=== PATIENT | male | born 1955 | race Two or more races ===

== ENCOUNTER 2017-05-26 21:46 | Inpatient (IN) | payer BC, OTHER ==
[~2017-05-26] VITALS: Ht 172.7 cm; Wt 111.8 kg
[2017-05-26] MEDS ORDERED: SODIUM CHLORIDE 0.9% 1,000 ML IVB ONE (22:12)
[2017-05-26] MEDS ORDERED: ONDANSETRON HCL 4 MG/2 ML VIAL ONE (22:37)
[2017-05-26 22:38] LABS: Basophils # (auto) 0.1 uL; Basophils % (auto) 0.3 % (0.0-2.0); Eosinophils # (auto) 0 uL; Eosinophils % (auto) 0.1 % (0.0-7.0); Hematocrit 46.8 % (41.0-53.0); Lymphocytes # (auto) 1.3 uL; Lymphocytes % (auto) 7.2 % (10.0-50.0); Mean Corpuscular Hemoglobin 30.1 pg (28.0-32.0); Mean Corpuscular Hgb Conc. 34.3 g/dL (32.0-36.0); Mean Corpuscular Volume 87.8 fL (80.0-100.0); Mean Platelet Volume 7.5 fL (6.9-10.8); Monocytes # (auto) 1.7 uL; Monocytes % (auto) 9.5 % (0.0-12.0); Neutrophils # (auto) 14.5 uL; Neutrophils % (auto) 82.9 % (37.0-80.0); Platelet Count (auto) 242 10^3/uL (140-450); White Blood Cell 17.5 10^3/uL (4.4-10.8)
[2017-05-26] MEDS ORDERED: ONDANSETRON HCL 4 MG/2 ML VIAL IV ONE (22:45)
[2017-05-26 22:46] LABS: Urine Bilirubin Negative (Negative); Urine Blood TRACE /uL (Negative); Urine Color Yellow (Yellow); Urine Glucose Normal (Normal); Urine Ketone Negative (Negative); Urine Nitrite Negative (Negative); Urine RBC 1 /hpf (0 - 3); Urine Urobilinogen Normal (Negative)
[2017-05-26 22:54] LABS: Albumin 3.9 g/dL (3.4-5.0); BUN/Creatinine Ratio 8.2; Calcium 9.3 mg/dL (8.5-10.1); Potassium 3.6 mmol/L (3.5-5.1)
[2017-05-26 22:56] LABS: Bilirubin, Total 0.8 mg/dL (0.2-1.0); Total Protein 8.6 g/dL (6.4-8.2)
[2017-05-26] MEDS ORDERED: NALBUPHINE HCL 10 MG/1ml INJECTION IV ONE (23:45)
[2017-05-27] MEDS ORDERED: metroNIDAZOLE 500MG/100ML 100 ML IV ONE (04:00)
[2017-05-27] MEDS ORDERED: cefTRIAXone 1GM/50ML D5W 50 ML IV ONE (04:00)
[2017-05-27] MEDS ORDERED: HYDROmorphone HCL 2 MG/ML VL IV ONE (04:00)
[2017-05-27] MEDS ORDERED: ACETAMINOPHEN 325 MG TAB PO PRN (06:45)
[2017-05-27] MEDS ORDERED: METOPROLOL TARTRATE 1MG/1ML-5ML VIAL IV ONE (06:45)
[2017-05-27] MEDS ORDERED: TEMAZEPAM 15 MG CAP PO PRN (06:45)
[2017-05-27] MEDS ORDERED: NITROGLYCERIN 0.4 MG SL TAB SL PRN (06:45)
[2017-05-27] MEDS ORDERED: SODIUM CHLORIDE 0.9% 500 ML IV ONE (06:45)
[2017-05-27] MEDS ORDERED: ONDANSETRON HCL 4 MG/2 ML VIAL IV PRN (06:45)
[2017-05-27] MEDS ORDERED: MORPHINE SULF INJ 2 MG/ML SYRINGE 1ML IV PRN ×2 (06:45)
[2017-05-27] MEDS ORDERED: cloNIDine HCL 0.1 MG TAB PO PRN (06:45)
[2017-05-27 07:13] LABS: Calcium 8.2 mg/dL (8.5-10.1); Potassium 4.1 mmol/L (3.5-5.1)
[2017-05-27 07:16] LABS: BUN/Creatinine Ratio 9.6
[2017-05-27] MEDS ORDERED: SODIUM CHLORIDE 0.9% 1,000 ML IV SCH (07:45)
[2017-05-27] MEDS ORDERED: HYDROcodone-ACET 5/325MG TAB PO ONE (08:00)
[2017-05-27] MEDS ORDERED: METOPROLOL TARTRATE 25 MG TAB PO SCH (10:00)
[2017-05-27] MEDS ORDERED: ENOXAPARIN SOD 40 MG/0.4 ML SYRINGE SC SCH (10:00)
[2017-05-27] MEDS: PANTOPRAZOLE 40 MG/10 ML VIAL IV SCH (11:18)
[2017-05-27] MEDS ORDERED: OMEP20CA74 PO (12:21)
[2017-05-27 13:00] VITALS: BP 157/102
[2017-05-27] MEDS ORDERED: LIDOCAINE 1% HCL (LOCAL ANESTH.) INJ 20ML MDV ONE (14:00)
[2017-05-27] MEDS ORDERED: SUCCINYLCHOLINE CHLORIDE 20 MG/ML 10ML VIAL IV ONE (14:00)
[2017-05-27] MEDS ORDERED: ETOMIDATE (2MG/ML) 20ML VIAL IV ONE (14:03)
[2017-05-27] MEDS ORDERED: MEPERIDINE HCL (50 MG/ML) 1 ML VIAL ONE (14:03)
[2017-05-27] MEDS ORDERED: MIDAZOLAM HCL 1MG/1ML-2 ML VIAL ONE (14:03)
[2017-05-27] MEDS ORDERED: fentaNYL CITRATE 100 MCG/2 ML VL ONE (14:03)
[2017-05-27] MEDS ORDERED: SODIUM CHLORIDE LOCK 20 ML ONE (14:03)
[2017-05-27] MEDS ORDERED: ROCURONIUM 10MG/ML 10ML VIAL IV ONE (14:03)
[2017-05-27] MEDS: metroNIDAZOLE 500MG/100ML 100 ML IV SCH ×2 (14:16→21:45)
[2017-05-27] MEDS: HYDROmorphone HCL 2 MG/ML VL IV PRN (14:16)
[2017-05-27] MEDS ORDERED: ceFAZolin 1GM/50ML D5W 50 ML IV ONE (14:43)
[2017-05-27 14:53] LABS: INR 1.05 (0.9-1.15); Partial Thromboplastin Time 28.7 sec (22.64-33.71); Prothrombin Time 11.5 sec (9.37-12.3)
[2017-05-27] MEDS ORDERED: GLYCOPYRROLATE 0.2 MG/ML 1ML VIAL IV ONE (15:14)
[2017-05-27] MEDS ORDERED: NEOSTIGMINE 1 MG/ML INJ (10mg/10ML VIAL) IV ONE (15:14)
[2017-05-27] MEDS ORDERED: PROPOFOL 10 MG/ML 20 ML IV ONE (15:16)
[2017-05-27] MEDS ORDERED: fentaNYL CITRATE 5 ML ONE (15:16)
[2017-05-27] MEDS ORDERED: ONDANSETRON HCL 4 MG/2 ML VIAL IV ONE (16:30)
[2017-05-27] MEDS ORDERED: HYDROmorphone HCL 2 MG/ML VL IV PRN (16:30)
[2017-05-27] MEDS ORDERED: ePHEDrine SULFATE 50 MG/ML AMP IV PRN (16:30)
[2017-05-27] MEDS ORDERED: hydrALAZINE HCL 20 MG/ML VL IV PRN (16:30)
[2017-05-27 22:00] VITALS: BP 109/70
[2017-05-28] VITALS (7 sets, daily range): BP systolic 99–146; BP diastolic 67–112
[2017-05-28] MEDS: HYDROcodone-ACET 5/325MG TAB PO PRN ×3 (05:24→22:11)
[2017-05-28] MEDS: cefTRIAXone 1GM/50ML D5W 50 ML IV SCH (05:25)
[2017-05-28 05:41] LABS: Basophils # (auto) 0 uL; Basophils % (auto) 0.4 % (0.0-2.0); CONDITION Y; Eosinophils # (auto) 0.1 uL; Eosinophils % (auto) 0.9 % (0.0-7.0); Hematocrit 39.5 % (41.0-53.0); Hemoglobin 13.2 g/dL (13.5-17.5); Lymphocytes # (auto) 1.5 uL; Lymphocytes % (auto) 13.6 % (10.0-50.0); Mean Corpuscular Hemoglobin 29.9 pg (28.0-32.0); Mean Corpuscular Hgb Conc. 33.4 g/dL (32.0-36.0); Mean Corpuscular Volume 89.6 fL (80.0-100.0); Mean Platelet Volume 8.3 fL (6.9-10.8); Monocytes # (auto) 0.9 uL; Monocytes % (auto) 8.5 % (0.0-12.0); Neutrophils # (auto) 8.2 uL; Neutrophils % (auto) 76.6 % (37.0-80.0); Platelet Count (auto) 211 10^3/uL (140-450); Red Cell Distribution Width 13.9 % (11.8-14.3); White Blood Cell 10.7 10^3/uL (4.4-10.8)
[2017-05-28 06:01] LABS: Calcium 7.9 mg/dL (8.5-10.1); Potassium 3.7 mmol/L (3.5-5.1)
[2017-05-28 06:02] LABS: INR 1.09 (0.9-1.15); Partial Thromboplastin Time 29.4 sec (22.64-33.71); Prothrombin Time 11.9 sec (9.37-12.3)
[2017-05-28 06:04] LABS: Albumin 2.8 g/dL (3.4-5.0); BUN/Creatinine Ratio 10.9
[2017-05-28 06:07] LABS: Bilirubin, Total 0.9 mg/dL (0.2-1.0)
[2017-05-28] MEDS: metroNIDAZOLE 500MG/100ML 100 ML IV SCH ×3 (06:58→21:54)
[2017-05-28] MEDS: PANTOPRAZOLE 40 MG/10 ML VIAL IV SCH (10:05)
[2017-05-28] MEDS: SODIUM CHLORIDE 0.9% 1,000 ML IV SCH ×2 (10:07→17:45)
[2017-05-28] MEDS: HYDROmorphone HCL 2 MG/ML VL IV PRN (14:34)
[2017-05-29] MEDS: SODIUM CHLORIDE 0.9% 1,000 ML IV SCH ×2 (03:47→13:45)
[2017-05-29] MEDS: cefTRIAXone 1GM/50ML D5W 50 ML IV SCH (04:36)
[2017-05-29 05:31] VITALS: BP 129/91
[2017-05-29] MEDS: metroNIDAZOLE 500MG/100ML 100 ML IV SCH ×3 (05:45→21:53)
[2017-05-29 07:35] VITALS: BP 136/94
[2017-05-29] MEDS: PANTOPRAZOLE 40 MG/10 ML VIAL IV SCH (10:27)
[2017-05-29] MEDS: HYDROcodone-ACET 5/325MG TAB PO PRN (10:51)
[2017-05-29 11:30] VITALS: BP 148/102
[2017-05-29 15:24] VITALS: BP 146/93
[2017-05-29 22:26] VITALS: BP 147/103
[2017-05-30 00:54] VITALS: BP 145/99
[2017-05-30] MEDS: SODIUM CHLORIDE 0.9% 1,000 ML IV SCH ×2 (02:23→10:20)
[2017-05-30] MEDS: cefTRIAXone 1GM/50ML D5W 50 ML IV SCH (04:37)
[2017-05-30] MEDS: metroNIDAZOLE 500MG/100ML 100 ML IV SCH ×2 (05:32→14:00)
[2017-05-30 05:45] LABS: Calcium 8.6 mg/dL (8.5-10.1); Potassium 3.4 mmol/L (3.5-5.1)
[2017-05-30 05:47] LABS: BUN/Creatinine Ratio 9.9
[2017-05-30 05:50] LABS: Bilirubin, Total 0.5 mg/dL (0.2-1.0); Total Protein 7.2 g/dL (6.4-8.2)
[2017-05-30 06:24] VITALS: BP 132/86
[2017-05-30 08:00] VITALS: BP 132/86
[2017-05-30 08:58] VITALS: BP 145/99
[2017-05-30] MEDS: PANTOPRAZOLE 40 MG/10 ML VIAL IV SCH (10:20)
[2017-05-30] MEDS ORDERED: POTASSIUM CHL 20 Meq TABLET PO ONE (11:45)
[2017-05-30 13:00] VITALS: BP 143/88
[2017-05-30 14:28] VITALS: BP 139/98
== END 2017-05-30 15:30 | disposition home or self-care (01) | DRG 853 ==
LOC: ER 21:56 → TELE 21:57 → TELE-E-ADS 05-27 08:22 → TELE-WESTW 05-27 10:30 → WEST WING 05-29 01:30
PROVIDERS: ADMIT Nurse Practitioner; ATTEND Internal Medicine
PROC: 0FT44ZZ Resection of Gallbladder, Percutaneous Endoscopic Approach (ICD-10-PCS; principal; 2017-05-27 15:14)
DX: A41.9 Sepsis, unspecified organism (principal); N17.0 Acute kidney failure with tubular necrosis; K85.90 Acute pancreatitis without necrosis or infection, unspecified; K80.00 Calculus of gallbladder with acute cholecystitis without obstruction; I10 Essential (primary) hypertension; Z85.46 Personal history of malignant neoplasm of prostate; N20.0 Calculus of kidney; E66.01 Morbid (severe) obesity due to excess calories; K44.9 Diaphragmatic hernia without obstruction or gangrene; K82.8 Other specified diseases of gallbladder; Z90.79 Acquired absence of other genital organ(s); Z68.37 Body mass index [BMI] 37.0-37.9, adult
CPT/HCPCS: 36415; 71010; 74176; 80048; 80053; 81001; 83690; 84484; 85025; 85610; 85730; 86850; 86900; 86901; 87040; 93005; 96361; 96365; 96366; 96368; 96375; C9113; J0330; J0690; J0696; J2001; J2250; J2405; J2704; J3490

== ENCOUNTER → 2023-04-28 | Outpatient (CLI) | payer MEDICARE ==
[~2023-04-28] MED LIST: OMEP20CA74 PO
[2023-04-28 08:51] LABS: Basophils # (auto) 0.1 10 ^3/uL (0-0.2); Basophils % (auto) 0.8 % (0.0-2.0); Eosinophils # (auto) 0.4 10 ^3/uL (0-0.8); Eosinophils % (auto) 5.2 % (0.0-7.0); Hematocrit 43.6 % (41.0-53.0); Hemoglobin 14.8 g/dL (13.5-17.5); Lymphocytes # (auto) 2.2 10 ^3/uL (0.4-5.4); Lymphocytes % (auto) 30.1 % (10.0-50.0); Mean Corpuscular Hemoglobin 29.6 pg (28.0-32.0); Mean Corpuscular Volume 87.1 fL (80.0-100.0); Monocytes # (auto) 0.6 10 ^3/uL (0-1.3); Neutrophils # (auto) 4.1 10 ^3/uL (1.6-8.6); Neutrophils % (auto) 55.9 % (37.0-80.0); Nucleated Red Blood Cells % 0.1 %; Red Blood Cells 5.01 10^6/uL (4.5-5.90); Red Cell Distribution Width 14.2 % (11.8-14.3); White Blood Cell 7.4 10^3/uL (4.4-10.8)
[2023-04-28 09:37] LABS: Albumin 3.8 g/dL (3.4-5.0); Calcium 9.3 mg/dL (8.5-10.1); Potassium 3.8 mmol/L (3.5-5.1)
[2023-04-28 09:43] LABS: BUN/Creatinine Ratio 7.6 (10.0-20.0); Bilirubin, Total 0.6 mg/dL (0.2-1.0); Total Protein 8.5 g/dL (6.4-8.2)
== END | disposition home or self-care (01) ==
LOC: LAB 08:39
PROVIDERS: ATTEND Internal Medicine Rheumatology
DX: E11.65 Type 2 diabetes mellitus with hyperglycemia (principal); I10 Essential (primary) hypertension
CPT/HCPCS: 36415; 80053; 80061; 83036; 85025

== ENCOUNTER 2025-07-17 09:02 | Inpatient (IN) | payer MEDICARE ==
[~2025-07-17] VITALS: Ht 172.7 cm; Wt 100.3 kg
--- NOTE | 2025-07-17 09:46 | ED.PDOC ---
Altered Mental Status HPI Comments This is a 69 year old male presenting to the ED with chief complaint of memory loss. Patient's reports that the patient has become increasingly forgetful and confused for the past few days. relays that the patient was unable to remember getting home last night for [address] he needed to take was 45 minutes. states that the patient was advised by Dr. Liu to come into the ED for further evaluation due to possible new onset dementia. Patient denies any further symptoms or concerns at this time. Chief Complaint: Confusion Time Seen by MD: 09:44 Primary Care Provider: UNKNOWN Reviewed Notes: Nurses Notes, Medications, Allergies Allergies: Coded Allergies: NO KNOWN ALLERGIES (Unverified , 05/26/17) YES Home Meds Reported Medications Omeprazole (PRILOSEC) 20 Mg Cap, 20 MG PO DAILY, CAP 05/27/17 Information Source: Patient, Spouse Mode of Arrival: Ambulatory Severity: Mild Timing: Days Duration: Since onset Prehospital treatment: None Quality: Confusion, Memory Loss Recent: None Past Medical History PAST MEDICAL HISTORY: Cancer, HTN Surgical History: Denies all surgeries Family History Family History (Other): Dementia Social History Smoker: Non-Smoker Alcohol: Denies ETOH Use Drugs: Denies Drug Use Lives In: Home Constitutional: denies: chills, diaphoresis, fatigue, fever, malaise, sweats, weakness, others EENTM: denies: blurred vision, double vision, ear bleeding, ear discharge, ear drainage, ear pain, ear ringing, eye pain, eye redness, hearing loss, mouth pain, mouth swelling, nasal discharge, nose bleeding, nose congestion, nose pain, photophobia, tearing, throat pain, throat swelling, voice changes, others Respiratory: denies: cough, hemoptysis, orthopnea, SOB at rest, shortness of breath, SOB with excertion, stridor, wheezing, others Cardiovascular: denies: chest pain, dizzy spells, diaphoresis, Dyspnea on exertion, edema, irregular heart beat, left arm pain, lightheadedness, palpitations, PND, syncope, others Gastrointestinal: denies: abdomen distended, abdominal pain, blood streaked bowels, constipated, diarrhea, dysphagia, difficulty swallowing, hematemesis, me mike, nausea, poor appetite, poor fluid intake, rectal bleeding, rectal pain, vomiting, others Genitourinary: denies: burning, dysuria, flank pain, frequency, hematuria, incontinence, penile discharge, penile sore, pain, testicle pain, testicle swelling, urgency, others Neurological: reports: others (Confusion); denies: dizziness, fainting, headache, left sided numbness, left sided weakness, numbness, paresthesia, pre- existing deficit, right sided numbness, right sided weakness, seizure, speech problems, tingling, tremors, weakness Musculoskeletal: denies: back pain, gout, joint pain, joint swelling, muscle pain, muscle stiffness, neck pain, others Integumetry: denies: bruises, change in color, change in hair/nails, dryness, laceration, lesions, lumps, rash, wounds, others Allergic/Immunocompromised: denies: Difficulty Healing, Frequent Infections, Hives, Itching, others Hematologic/Lymphatic: denies: anemia, blood clots, easy bleeding, easy bruising, swollen glands, others Endocrine: denies: excessive hunger, excessive sweating, excessive thirst, excessive urination, flushing, intolerance to cold, intolerance to heat, unexplained weight gain, unexplained weight loss, others Psychiatric: denies: anxiety, bipolar disorder, depression, hopeless, panic disorder, schizophrenia, sleepless, suicidal, others All Other Systems: Reviewed and Negative Physical Exam General Appearance: No Apparent Distress, Normal HEENT: Normal ENT Inspection, Pharynx Normal, TMs Normal Neck: Full Range of Motion, Non-Tender, Normal, Normal Inspection Respiratory: Chest Non-Tender, Lungs Clear, No Accessory Muscle Use, No Respiratory Distress, Normal Breath Sounds Cardiovascular: No Edema, No JVD, No Murmur, No Gallop, Normal Peripheral Pulses, Regular Rate/Rhythm Breast Exam: Deferred Gastrointestinal: No Organomegaly, Non Tender, No Pulsatile Mass, Normal Bowel Sounds, Soft Genitalia: Deferred Pelvic: Deferred Rectal: Deferred Extremities: No calf tenderness, Normal capillary refill, Normal inspection, Normal range of motion, Non-tender, No pedal edema Musculoskeletal : Apperance: Normal Neurologic: Alert, 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 Was a procedure done?: No Differential Diagnosis (ALOC) Differential Diagnosis: Hypoglycemia, DKA, Encephalopathy, Hypoxemia, Seizure, Mass Lesion, SAH X-Ray, Labs, Meds, VS Vital Signs Date Time Temp Pulse Resp B/P (MAP) Pulse Ox O2 Delivery O2 Flow Rate FiO2 07/17/25 09:04 98.4 103 19 140/84 95 98.4 Lab Test 07/17/25 10:35 07/17/25 10:00 07/17/25 09:50 Range/Units Troponin I High Sensitivity Pending 12 </=54 ng/L Urine Color Light-yellow Yellow Urine Clarity Clear Clear Urine pH 5.5 5.0-9.0 Urine Specific [place] 1.019 1.001-1.035 Urine Protein Trace H Negative Urine Ketones Negative Negative Urine Blood Negative Negative /uL Urine Nitrite Negative Negative Urine Bilirubin Negative Negative Urine Urobilinogen Normal Negative mg/dL Urine Leukocyte Esterase Negative Negative /uL Urine RBC None seen 0 - 3 /hpf Urine Microscopic WBC 1 0-3 /HPF Urine Squamous Epithelial Cells None seen <5 /hpf Urine Bacteria None seen None Seen /hpf Urine Glucose 4+ H Normal mg/dL White Blood Count 6.8 4.4-10.8 10^3/uL Red Blood Count 5.28 4.5-5.90 10^6/uL Hemoglobin 15.7 13.5-17.5 g/dL Hematocrit 47.0 41.0-53.0 % Mean Corpuscular Volume 89.0 80.0-100.0 fL Mean Corpuscular Hemoglobin 29.8 28.0-32.0 pg Mean Corpuscular Hemoglobin Concent 33.5 32.0-36.0 g/dL Red Cell Distribution Width 14.0 11.8-14.3 % Platelet Count 249 140-450 10^3/uL Mean Platelet Volume 7.7 6.9-10.8 fL Neutrophils (%) (Auto) 58.9 37.0-80.0 % Lymphocytes (%) (Auto) 31.5 10.0-50.0 % Monocytes (%) (Auto) 6.4 0.0-12.0 % Eosinophils (%) (Auto) 2.1 0.0-7.0 % Basophils (%) (Auto) 1.1 0.0-2.0 % Neutrophils # (Auto) 4.0 1.6-8.6 10 ^3/uL Lymphocytes # (Auto) 2.1 0.4-5.4 10 ^3/uL Monocytes # (Auto) 0.4 0-1.3 10 ^3/uL Eosinophils # (Auto) 0.1 0-0.8 10 ^3/uL Basophils # (Auto) 0.1 0-0.2 10 ^3/uL Nucleated Red Blood Cells 0.0 % Sodium Level 140 136-145 mmol/L Potassium Level 3.8 3.5-5.1 mmol/L Chloride Level 104 98-107 mmol/L Carbon Dioxide Level 26 20-31 mmol/L Anion Gap 10 5-15 Blood Urea Nitrogen 9 9-23 mg/dL Creatinine 1.65 H 0.700-1.30 mg/dL Glomerular Filtration Rate Calc 44 >90 mL/min BUN/Creatinine Ratio 5.5 L 10.0-20.0 Serum Glucose 358 H 74-106 mg/dL Calcium Level 9.5 8.7-10.4 mg/dL [place] [id number] Ph: [phone] DIAGNOSTIC IMAGING Diagnostic Imaging Report : [id number] Signed PATIENT: GENE PATEL ACCT: [id number] UNIT: [id number] : 1955 LOC: ER ROOM / BED: / AGE / SEX: 69 / M ADM STATUS: REG ER SERVICE 0940 ORDERING PHYSICIAN: NICHOLAS RODRIGUEZ MD PROCEDURE(s): HWOCT - HEAD WITHOUT CONTRAST REASON: [facility] ORDER NUMBER(s): [id number], ACCESSION NUMBER(s): [id number] INDICATION: ams TECHNIQUE: Multidetector row CT of the head was performed without administration of intravenous contrast. Dose lowering techniques have been used including automated exposure control and adjustment of mA and/or kv according to patient size. COMPARISON: None FINDINGS: There is no evidence of acute intracranial hemorrhage or infarct. There is no mass effect or shifting of midline structures. Generalized cerebral and cerebellar atrophy with prominence of sulci and ventricles. Periventricular white matter hypodensity likely reflect small vessel ischemic changes. No depressed calvarial fracture. DLP is 968.69 mGy-cm. CTDI vol is 53.63 mGy. IMPRESSION: 1. No acute intracranial abnormality. ATED BY: JP CHRISTINE MD DICTATED DATE/TIME: 07/17/25 1034 SIGNED BY: JP CHRISTINE MD SIGNED DATE/TIME: 07/17/25 1034 CC: [place] [id number] Ph: [phone] DIAGNOSTIC IMAGING Diagnostic Imaging Report : [id number] Signed PATIENT: GENE PATEL ACCT: [id number] UNIT: [id number] : 1955 LOC: ER ROOM / BED: / AGE / SEX: 69 / M ADM STATUS: REG ER SERVICE 9 ORDERING PHYSICIAN: NICHOLAS RODRIGUEZ MD PROCEDURE(s): CXRP - CHEST PORTABLE REASON: ams ORDER NUMBER(s): [id number], ACCESSION NUMBER(s): [id number] EXAM: XY CHEST PORTABLE Indication: ams Technique: Single frontal view of the chest was obtained Comparison: None FINDINGS: Lines and Tubes: None Lungs: No focal consolidation. Pleura: No effusion. No pneumothorax. Cardiomediastinal contours: Unremarkable Bones: No acute osseous abnormality. IMPRESSION: No acute cardiopulmonary disease. ATED BY: IVANA BELLO MD DICTATED DATE/TIME: 07/17/25 1016 SIGNED BY: IVANA BELLO MD SIGNED DATE/TIME: 07/17/25 1016 CC: Images Reviewed?: Images reviewed and evaluated by me Time of 1ST Reevaluation: 11:07 Reevaluation 1ST: Unchanged Patient Education/Counseling: Diagnosis, Treatment Family Education/Counseling: Diagnosis, Treatment SEPSIS Sepsis Screen Date sepsis recognized/suspect: Jul 17, 2025 Time Sepsis recognized/suspect: 0908 Recent Procedure: No On Antibiotic Therapy: No Respiratory Rate >20: No Heart Rate >90: No Temp<36 C (96.8 F) or >38.3 C: No SBP <90 or MAP <65 mmHG: No New Acute Mental Status Change: No Is the patient on CPAP, BIPAP,: No Physician Orders Chest Portable (07/17/25 09:40) Head Without Contrast (07/17/25 09:40) Electrocardigram (07/17/25 09:40) Troponin-I Hs (07/17/25 10:40) Troponin-I Hs (07/17/25 12:40) Electrocardigram (07/17/25 10:40) Electrocardigram (07/17/25 12:40) Vital Signs Date Time Temp Pulse Resp B/P (MAP) Pulse Ox O2 Delivery O2 Flow Rate FiO2 07/17/25 09:04 98.4 103 19 140/84 95 98.4 Laboratory Tests Test 07/17/25 09:50 White Blood Count 6.8 10^3/uL (4.4-10.8) Departure 1 Departure Time of Disposition: 11:07 (Patient likely with worsening metabolic encephalopathy versus new onset dementia. We will admit the patient for further workup) Impression: Primary Impression: Acute metabolic encephalopathy Additional Impressions: Altered mental status Generalized weakness Disposition: ADMITTED INPATIENT Admit to: Med Surg Condition: Guarded Critical Care Note Critical Care Time?: No Stability Stability form required: No Heart Score Heart Score: Heart Score Response (Comments) Value History N/A 0 EKG N/A 0 Age N/A 0 Risk Factors N/A 0 Troponin N/A 0 Total 0 I personally scribed for NICHOLAS RODRIGUEZ MD ([email or web address]) on 07/17/25 at 09:46. Electronically submitted by Asher Cobb ([email or web address]). I personally scribed for NICHOLAS RODRIGUEZ MD ([email or web address]) on 07/17/25 at 10:45. Electronically submitted by Asher Cobb ([email or web address]). NICHOLAS RODRIGUEZ MD Jul 17, 2025 09:46
[2025-07-17 10:11] LABS: Hematocrit 47.0 % (41.0-53.0); Hemoglobin 15.7 g/dL (13.5-17.5); Mean Corpuscular Hemoglobin 29.8 pg (28.0-32.0); Mean Corpuscular Volume 89.0 fL (80.0-100.0); Nucleated Red Blood Cells % 0.0 %
[2025-07-17 10:17] LABS: Chloride 104 mmol/L (98-107); Potassium 3.8 mmol/L (3.5-5.1); Sodium 140 mmol/L (136-145)
--- NOTE | 2025-07-17 10:18 | DVH ---
EXAM: XY CHEST PORTABLE Indication: ams Technique: Single frontal view of the chest was obtained Comparison: None FINDINGS: Lines and Tubes: None Lungs: No focal consolidation. Pleura: No effusion. No pneumothorax. Cardiomediastinal contours: Unremarkable Bones: No acute osseous abnormality. IMPRESSION: No acute cardiopulmonary disease.
[2025-07-17 10:19] LABS: Anion Gap 10 (5-15); Calcium 9.5 mg/dL (8.7-10.4); Carbon Dioxide 26 mmol/L (20-31)
[2025-07-17 10:23] LABS: Urine Protein, UAD TRACE (Negative)
[2025-07-17 10:24] LABS: BUN/Creatinine Ratio 5.5 (10.0-20.0)
[2025-07-17 10:26] LABS: Blood Urea Nitrogen 9 mg/dL (9-23); Glucose 358 mg/dL (74-106)
--- NOTE | 2025-07-17 10:36 | DVH ---
INDICATION: ams TECHNIQUE: Multidetector row CT of the head was performed without administration of intravenous contrast. Dose lowering techniques have been used including automated exposure control and adjustment of mA and/or kv according to patient size. COMPARISON: None FINDINGS: There is no evidence of acute intracranial hemorrhage or infarct. There is no mass effect or shifting of midline structures. Generalized cerebral and cerebellar atrophy with prominence of sulci and ventricles. Periventricular white matter hypodensity likely reflect small vessel ischemic changes. No depressed calvarial fracture. DLP is 968.69 mGy-cm. CTDI vol is 53.63 mGy. IMPRESSION: 1. No acute intracranial abnormality.
[2025-07-17] MEDS ORDERED: ONDANSETRON HCL 4 MG/2 ML VIAL IV PRN (19:30)
[2025-07-17 19:59] LABS: Chloride 103 mmol/L (98-107); Potassium 3.5 mmol/L (3.5-5.1); Sodium 138 mmol/L (136-145)
[2025-07-17 20:00] LABS: Anion Gap 8 (5-15); Calcium 9.8 mg/dL (8.7-10.4); Carbon Dioxide 27 mmol/L (20-31)
[2025-07-17 20:13] LABS: Glucose 325 mg/dL (74-106)
[2025-07-17 20:23] LABS: BUN/Creatinine Ratio 7.1 (10.0-20.0); Blood Urea Nitrogen 11 mg/dL (9-23)
--- NOTE | 2025-07-17 21:39 | DVHHP2 ---
History of Present Illness Reason for Visit: Memory loss History of Present Illness 69-year-old male presents for evaluation of memory loss. Patient is accompanied by his . She reports the patient becoming forgetful and confused over the past two days. He states that the day before yesterday it took them more than 2 hours to get home when a normally takes some 35 minutes. Also reports the patient becoming confused and possibly having hallucinations. Her primary care provider advised her to present to the emergency department for further evaluation. Past Medical History Hypertension, cancer Past Surgical History None Family History Noncontributory Smoke: No ALCOHOL: none Drugs: None Lives: with Family Review of Systems Review of Systems Review of systems are currently negative otherwise addressed in HPI. Allergies: Coded Allergies: NO KNOWN ALLERGIES (Unverified , 05/26/17) YES Medications Current Medications Medications Dose Ordered Sig/Jacqueline Route Start Time Stop Time Status Last Admin Dose Admin Ondansetron HCl 4 mg Q4HP PRN IV 07/17/25 19:30 Acetaminophen 650 mg Q6HP PRN PO 07/17/25 19:30 Exam Vital Signs Vital Signs Date Time Temp Pulse Resp B/P (MAP) Pulse Ox O2 Delivery O2 Flow Rate FiO2 07/17/25 19:10 96 16 124/84 (97) 95 07/17/25 09:04 98.4 98.4 Exam Gen: 69-year-old male in mild distress. Skin: Warm, dry, normal color and texture, no rash. HEENT: Normocephalic atraumatic, mucous membranes moist and pink. Neck: Cervical and supraclavicular nodes normal without enlargement, trachea is midline, thyroid gland is normal without masses. Pulmonary: Clear to auscultation and percussion bilaterally. Cardiac: Regular rate and rhythm. No murmur Abdomen: Soft, nontender, nondistended, bowel sounds present all 4 quadrants, no guarding, no rigidity, no organomegaly. Extremities: No cyanosis, clubbing, no edema Neuro: Cranial nerves II through XII grossly intact, normal affect and speech, no focal motor deficits. Labs/Xrays ORDERING PHYSICIAN: NICHOLAS RODRIGUEZ MD PROCEDURE(s): HWOCT - HEAD WITHOUT CONTRAST REASON: ams ORDER NUMBER(s): [id number], ACCESSION NUMBER(s): [id number] INDICATION: ams TECHNIQUE: Multidetector row CT of the head was performed without administration of intravenous contrast. Dose lowering techniques have been used including automated exposure control and adjustment of mA and/or kv according to patient size. COMPARISON: None FINDINGS: There is no evidence of acute intracranial hemorrhage or infarct. There is no mass effect or shifting of midline structures. Generalized cerebral and cerebellar atrophy with prominence of sulci and ventricles. Periventricular white matter hypodensity likely reflect small vessel ischemic changes. No depressed calvarial fracture. DLP is 968.69 mGy-cm. CTDI vol is 53.63 mGy. IMPRESSION: 1. No acute intracranial abnormality. Labs Test 07/17/25 19:31 07/17/25 13:20 07/17/25 10:00 07/17/25 09:50 Range/Units Sodium Level 138 136-145 mmol/L Potassium Level 3.5 3.5-5.1 mmol/L Chloride Level 103 98-107 mmol/L Carbon Dioxide Level 27 20-31 mmol/L Anion Gap 8 5-15 Blood Urea Nitrogen 11 9-23 mg/dL Creatinine 1.56 H 0.700-1.30 mg/dL Glomerular Filtration Rate Calc 47 >90 mL/min BUN/Creatinine Ratio 7.1 L 10.0-20.0 Serum Glucose 325 H 74-106 mg/dL Calcium Level 9.8 8.7-10.4 mg/dL Troponin I High Sensitivity 9 </=54 ng/L Urine Color Light-yellow Yellow Urine Clarity Clear Clear Urine pH 5.5 5.0-9.0 Urine Specific [place] 1.019 1.001-1.035 Urine Protein Trace H Negative Urine Ketones Negative Negative Urine Blood Negative Negative /uL Urine Nitrite Negative Negative Urine Bilirubin Negative Negative Urine Urobilinogen Normal Negative mg/dL Urine Leukocyte Esterase Negative Negative /uL Urine RBC None seen 0 - 3 /hpf Urine Microscopic WBC 1 0-3 /HPF Urine Squamous Epithelial Cells None seen <5 /hpf Urine Bacteria None seen None Seen /hpf Urine Glucose 4+ H Normal mg/dL White Blood Count 6.8 4.4-10.8 10^3/uL Red Blood Count 5.28 4.5-5.90 10^6/uL Hemoglobin 15.7 13.5-17.5 g/dL Hematocrit 47.0 41.0-53.0 % Mean Corpuscular Volume 89.0 80.0-100.0 fL Mean Corpuscular Hemoglobin 29.8 28.0-32.0 pg Mean Corpuscular Hemoglobin Concent 33.5 32.0-36.0 g/dL Red Cell Distribution Width 14.0 11.8-14.3 % Platelet Count 249 140-450 10^3/uL Mean Platelet Volume 7.7 6.9-10.8 fL Neutrophils (%) (Auto) 58.9 37.0-80.0 % Lymphocytes (%) (Auto) 31.5 10.0-50.0 % Monocytes (%) (Auto) 6.4 0.0-12.0 % Eosinophils (%) (Auto) 2.1 0.0-7.0 % Basophils (%) (Auto) 1.1 0.0-2.0 % Neutrophils # (Auto) 4.0 1.6-8.6 10 ^3/uL Lymphocytes # (Auto) 2.1 0.4-5.4 10 ^3/uL Monocytes # (Auto) 0.4 0-1.3 10 ^3/uL Eosinophils # (Auto) 0.1 0-0.8 10 ^3/uL Basophils # (Auto) 0.1 0-0.2 10 ^3/uL Nucleated Red Blood Cells 0.0 % SEPSIS Sepsis Screen Date sepsis recognized/suspect: Jul 17, 2025 Time Sepsis recognized/suspect: 09 Recent Procedure: No On Antibiotic Therapy: No Respiratory Rate >20: No Heart Rate >90: No Temp<36 C (96.8 F) or >38.3 C: No SBP <90 or MAP <65 mmHG: No New Acute Mental Status Change: No Is the patient on CPAP, BIPAP,: No Physician Orders * Neurology Consult (07/17/25 19:19) Ondansetron Hcl (Zofran) (07/17/25 19:30) Cardiac Diet-2gna,Lofat,Lochol (07/18/25 Breakfast) Condition: Stable (07/17/25 19:19) Acetaminophen Tablet (Tylenol Tablet) (07/17/25 19:30) Bedrest With Bathroom Privileg (07/17/25 19:19) Admit (07/17/25 19:55) Hemoglobin A1c (07/17/25 21:30) Vital Signs Date Time Temp Pulse Resp B/P (MAP) Pulse Ox O2 Delivery O2 Flow Rate FiO2 07/17/25 19:10 96 16 124/84 (97) 95 Laboratory Tests Test 07/17/25 09:50 White Blood Count 6.8 10^3/uL (4.4-10.8) Assessment/Plan Assessment/Plan Assessment Acute encephalopathy Questionable dementia Hypertension Chronic kidney disease Hyperglycemia Plan Admit the patient to [facility] to the hospitalist Nephrology consultation Hemoglobin A1c pending Resume home medications Continue treatment per orders. Plan discussed with: Patient My Orders Orders - VLADIMIR LING Procedure Category Date Status Time * Neurology Consult CONS 07/17/25 Transmitted 19:19 Ondansetron Hcl PHA 07/17/25 In Process (Zofran) 19:30 Cardiac DIET 07/18/25 Transmitted Diet-2gna,Lofat,Lochol Breakfast Condition: Stable SIDDHARTHA 07/17/25 In Process 19:19 Acetaminophen Tablet PHA 07/17/25 In Process (Tylenol Tablet) 19:30 Bedrest With Bathroom SIDDHARTHA 07/17/25 In Process Privileg 19:19 Admit ADMIT 07/17/25 Transmitted 19:55 Hemoglobin A1c LAB 07/17/25 Transmitted 21:30 Date of Service: Jul 17, 2025 Billing Provider: VLADIMIR LING Common Visit Codes: [id number] INP/OBS CARE (MOD) VLADIMIR LING Jul 17, 2025 21:39
--- NOTE | 2025-07-17 21:52 | DVHINCON2 ---
Date of service: Jul 17, 2025 Referring Physician Denzel Reason for Consultation ? Dementia, new onset History of Present Illness Mr. Rivera is a 69 years old right-handed gentleman with a history of hypertension, diabetes, prostate cancer, the patient was brought to the [facility] on 07/17/2025 with a chief complaint of progressive memory loss, confusion. 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 CT head, 07/17/2025: No acute intracranial abnormality (I saw evidence suggestive of chronic lacunar strokes in the left basal ganglia region) Past Medical History Hypertension, diabetes, prostate cancer, no stroke, no head trauma Past Surgical History Cholecystectomy, prostatic cancer surgery Family History: Cardiovascular disease G8 MOTHER Diabetes mellitus G8 MOTHER Prostate carcinoma G8 FATHER Family History Diabetes, Heart disease. Both parents had dementia Social History He has no history of tobacco smoking, drug or alcohol abuse Allergies: Coded Allergies: NO KNOWN ALLERGIES (Unverified , 05/26/17) YES Home Meds Reported Medications Omeprazole (PRILOSEC) 20 Mg Cap, 20 MG PO DAILY, CAP 05/27/17 Current Medications Current Medications Medications (Trade) Dose Ordered Sig/Jacqueline Route PRN Reason Start Time Stop Time Status Last Admin Ondansetron HCl (Zofran) 4 mg Q4HP PRN IV NAUSEA / VOMITING 07/17/25 19:30 Acetaminophen (Tylenol Tablet) 650 mg Q6HP PRN PO PAIN SCALE 1-3 OR TEMP>100.4 07/17/25 19:30 Review of Systems As above, the other systems are negative Vital Signs Vital Signs Date Time Temp Pulse Resp B/P (MAP) Pulse Ox O2 Delivery O2 Flow Rate FiO2 07/17/25 21:36 98 18 98 Room Air 07/17/25 21:36 98.0 122/76 (91) 98.0 Physical Exam GENERAL EXAM: General: the patient is well developed and nourished. No acute distress. HEENT: Normocephalic, neck is supple, no carotid bruits. No mass RESPIRATORY: Normal respiratory effort with symmetrical lung expansion. Lungs clear to auscultation. CARDIOVASCULAR: Regular rate and rhythm with no murmurs. S1, S2. ABDOMEN: Soft, nontender, normal bowel sound NEUROLOGICAL: MENTAL STATUS: Awake and alert. Oriented to person, place, he knows year and the month, but is a poor historian. Good social skills SPEECH, LANGUAGE, HIGHER CORTICAL FUNCTION: no aphasia or dysathria. CRANIAL NERVES: #2: Intact visual chandler to confrontation. The optic discs were sharp. #3,4,6: Pupils are equal, round and reactive. EOMs full and conjugate. No nystagmus. #5: Facial sensation intact in all three divisions bilaterally. Mandibular strength intact. #7: Facial muscles symmetrical and strength intact. #8: Hearing grossly normal to voice. #9,10: Uvula and soft palate rise in the midline. Swallow and voice are normal. #11: Trapezius and sternomastoid strength intact bilaterally. #12: Tongue midline. No fasciculations or atrophy. SENSATION: Sensation to touch and pinprick is normal. MOTOR: Normal tone in the upper and lower extremity. Normal muscle bulk. No fasciculations. No abnormal movements or posturing. Muscle strength of the major groups in the upper extremities is 5/5. Muscle strength of the major groups in the lower extremities is 5/5. REFLEXES: Deep tendon reflexes normal and symmetrical. No pathological reflexes. CEREBELLAR/COORDINATION: Finger to nose is normal bilaterally. GAIT/STATION: deferred. Labs/Diagnostic Data Labs Test 07/17/25 19:31 07/17/25 13:20 07/17/25 10:00 07/17/25 09:50 Range/Units Sodium Level 138 136-145 mmol/L Potassium Level 3.5 3.5-5.1 mmol/L Chloride Level 103 98-107 mmol/L Carbon Dioxide Level 27 20-31 mmol/L Anion Gap 8 5-15 Blood Urea Nitrogen 11 9-23 mg/dL Creatinine 1.56 H 0.700-1.30 mg/dL Glomerular Filtration Rate Calc 47 >90 mL/min BUN/Creatinine Ratio 7.1 L 10.0-20.0 Serum Glucose 325 H 74-106 mg/dL Calcium Level 9.8 8.7-10.4 mg/dL Troponin I High Sensitivity 9 </=54 ng/L Urine Color Light-yellow Yellow Urine Clarity Clear Clear Urine pH 5.5 5.0-9.0 Urine Specific [place] 1.019 1.001-1.035 Urine Protein Trace H Negative Urine Ketones Negative Negative Urine Blood Negative Negative /uL Urine Nitrite Negative Negative Urine Bilirubin Negative Negative Urine Urobilinogen Normal Negative mg/dL Urine Leukocyte Esterase Negative Negative /uL Urine RBC None seen 0 - 3 /hpf Urine Microscopic WBC 1 0-3 /HPF Urine Squamous Epithelial Cells None seen <5 /hpf Urine Bacteria None seen None Seen /hpf Urine Glucose 4+ H Normal mg/dL White Blood Count 6.8 4.4-10.8 10^3/uL Red Blood Count 5.28 4.5-5.90 10^6/uL Hemoglobin 15.7 13.5-17.5 g/dL Hematocrit 47.0 41.0-53.0 % Mean Corpuscular Volume 89.0 80.0-100.0 fL Mean Corpuscular Hemoglobin 29.8 28.0-32.0 pg Mean Corpuscular Hemoglobin Concent 33.5 32.0-36.0 g/dL Red Cell Distribution Width 14.0 11.8-14.3 % Platelet Count 249 140-450 10^3/uL Mean Platelet Volume 7.7 6.9-10.8 fL Neutrophils (%) (Auto) 58.9 37.0-80.0 % Lymphocytes (%) (Auto) 31.5 10.0-50.0 % Monocytes (%) (Auto) 6.4 0.0-12.0 % Eosinophils (%) (Auto) 2.1 0.0-7.0 % Basophils (%) (Auto) 1.1 0.0-2.0 % Neutrophils # (Auto) 4.0 1.6-8.6 10 ^3/uL Lymphocytes # (Auto) 2.1 0.4-5.4 10 ^3/uL Monocytes # (Auto) 0.4 0-1.3 10 ^3/uL Eosinophils # (Auto) 0.1 0-0.8 10 ^3/uL Basophils # (Auto) 0.1 0-0.2 10 ^3/uL Nucleated Red Blood Cells 0.0 % Assessment Acute cognitive dysfunction Metabolic encephalopathy Partial complex seizure Other pathology/structural lesion Dementia/Alzheimer disease, less likely Possible chronic stroke per CT brain Plan/Recommendation Monitoring Supportive treatment Telemetry UDS Vitamin B12, folic acid, TSH, RPR EEG MR brain scan Up to chair Physical therapy More recommendation per clinical course Progress: Poor This medical document was created using an electronic medical record system with [employer] computerized dictation system. Although this document has been carefully reviewed, there may still be some phonetic and typographical errors. These areas are purely typographical due to imperfections of the software programs, and do not reflect any compromise in the patient's medical care. Plan discussed with: Patient, Spouse, Other DESTINY FORD MD Jul 17, 2025 21:52
[2025-07-17 22:06] VITALS: BP 130/100; PULSE 107; RESP 18; TEMP 98.3; O2SAT 95
[2025-07-17 22:58] VITALS: BP 130/100; PULSE 101; RESP 17; TEMP 98.3; O2SAT 97
[2025-07-17] MEDS ORDERED: LORazepam 2MG/ML-1ML VIAL IV PRN (23:30)
[2025-07-18] VITALS (7 sets, daily range): BP systolic 107–147; BP diastolic 73–97; PULSE 78–88; RESP 16–18; TEMP 97.8–98.4; O2SAT 91–97
[2025-07-18 00:03] LABS: Free T4 (Free Thyroxine) 1.12 ng/dL (0.89-1.76)
[2025-07-18 00:04] LABS: Amphetamine Screen, Urine Neg (NEGATIVE); Barbiturate Scree,Urine Neg (NEGATIVE); Benzodiazephine Screen, Urine Neg (NEGATIVE); Cannabinoid Screen, Urine Neg (NEGATIVE); Cocaine Screen, Urine Neg (NEGATIVE); Opiate Scree,Urine Neg (NEGATIVE); Phencyclidine Screen, Urine Neg (NEGATIVE)
--- NOTE | 2025-07-18 09:35 | DVH ---
EXAMINATION: MRI BRAIN HEAD WO CONTRAST INDICATION: CVA COMPARISON: CT scan of the head performed on 07/17/2025 TECHNIQUE: Multiplanar, multisequence magnetic resonance imaging of the brain was performed without the use of intravenous contrast. FINDINGS: There is restricted diffusion in the tail of the left caudate nucleus consistent with acute infarct. No intracranial hemorrhage. No mass effect. There is periventricular/deep white matter T2/FLAIR hyperintensity is nonspecific, but most commonly associated with chronic microvascular disease. The ventricles and sulci are normal in size for age. Clear basal cisterns. Flow voids in the major intracranial vessels are maintained. No abnormality of the orbits. Mild mucosal thickening is noted in the sphenoid sinus. The rest of the paranasal sinuses and mastoid air cells are clear. No abnormality of the visualized osseous structures and extracranial soft tissues. IMPRESSION: 1. Acute infarct in the tail of the left caudate nucleus.
--- NOTE | 2025-07-18 10:14 | DVHPN2 ---
Progress Note - Dictate Date Seen: Jul 18, 2025 Medical Necessity Reason Pt with a Central, PICC or Fol: No Subjective Mr. Rivera is a 69 years old right-handed gentleman with a history of hypertension, diabetes, prostate cancer, the patient was brought to the [facility] on 07/17/2025 with a chief complaint of progressive memory loss, confusion. I have seen and examined the patient, I have talked to his nurse, . He is doing fine, alert, oriented to person place only today, good social skills, he remember me, no new complaints UDS, 07/17/2025: Negative Urinalysis, 07/17/2025: Unremarkable CBC, 07/17/2025: Okay BUN/CR, 07/17/2025: 111.56 GFR, 07/17/2025: 47 HGB A1c, 07/17/2025: 13.2 TG/HDL/LDL/HDL, 07/18/2025: 93/153/100/34 Vitamin B12, 07/17/25: 361 Folic acid, 07/17/2025: 4.62 TSH, 07/18/2025: 1.89 FT4, 07/17/25: 1.12 Carotid Doppler, 07/18/2025: No hemodynamically significant stenosis noted in the right carotid system. No hemodynamically significant stenosis noted in the left carotid system. Chest x-ray, 07/17/2025: No acute cardiopulmonary disease. CT head, 07/17/2025: No acute intracranial abnormality (I saw evidence suggestive of chronic lacunar strokes in the left basal ganglia region) MRI head, 07/18/2025: Acute infarct in the tail of the left caudate nucleus. vital signs Vital Sign Date Time Temp Pulse Resp B/P (MAP) Pulse Ox O2 Delivery O2 Flow Rate FiO2 07/18/25 08:50 98.0 82 18 141/89 (106) 94 98.0 07/17/25 22:58 Room Air* 0 21 Total Intake and Output 07/17/25 07/17/25 07/18/25 14:59 22:59 06:59 Intake Total 200 ml Balance 200 ml medications Current Medications Medications Dose Ordered Sig/Jacqueline Route Start Time Stop Time Status Last Admin Dose Admin Ondansetron HCl 4 mg Q4HP PRN IV 07/17/25 19:30 Acetaminophen 650 mg Q6HP PRN PO 07/17/25 19:30 Lorazepam 1 mg ONCE PRN IV 07/17/25 23:30 Temazepam 15 mg HS PRN PO 07/17/25 23:30 objective General: the patient is well developed and nourished. No acute distress. MENTAL STATUS: Subjective SPEECH, LANGUAGE, HIGHER CORTICAL FUNCTION: no aphasia or dysathria. CRANIAL NERVES: Pupils are equal, round and reactive. EOMs full and conjugate. No nystagmus. Facial sensation intact in all three divisions bilaterally. Mandibular strength intact. Facial muscles symmetrical and strength intact. : Tongue midline. No fasciculations or atrophy. SENSATION: Sensation to touch and pinprick is normal. MOTOR: Normal tone in the upper and lower extremity. Normal muscle bulk. No fasciculations. No abnormal movements or posturing. Muscle strength of the major groups in the extremities is 5/5. REFLEXES: Deep tendon reflexes normal and symmetrical. No pathological reflexes. CEREBELLAR/COORDINATION: Finger to nose is normal bilaterally. GAIT/STATION: deferred. laboratory and microbiology Laboratory Tests 07/17/25 19:31 07/17/25 09:50 Test 07/17/25 19:31 Range/Units Serum Glucose 325 H 74-106 mg/dL Problem List Acute cognitive dysfunction Metabolic encephalopathy Partial complex seizure Other pathology/structural lesion Dementia/Alzheimer disease, less likely Possible chronic stroke per CT brain Assessment/Plan Monitoring Supportive treatment Telemetry EEG Echocardiogram Aspirin 81 mg daily Lipitor 20 mg daily Clopidogrel 75 mg daily for 21 days Restoril 50 mg as needed at bedtime for insomnia Up to chair Physical therapy More recommendation per clinical course Progress: Poor This medical document was created using an electronic medical record system with [employer] dictation system. Although this document has been carefully reviewed, there may still be some phonetic and typographical errors. These areas are purely typographical due to imperfections of the software programs, and do not reflect any compromise in the patient's medical care. Prognosis poor Plan discussed with: Spouse, Other Total Time (mins): 40 DESTINY FORD MD Jul 18, 2025 10:14
[2025-07-18 10:29] LABS: Triglycerides 93 mg/dL (< 150)
[2025-07-18 10:31] LABS: Cholesterol 153 mg/dL (< 200)
[2025-07-18 10:47] LABS: HDL Cholesterol 34 mg/dL (40-59)
[2025-07-18] MEDS: CLOPIDOGREL BISULFATE 75 MG TAB PO ONE (11:37)
[2025-07-18] MEDS: ATORVASTATIN 20 MG TAB PO ONE (11:37)
[2025-07-18] MEDS: CLOPIDOGREL BISULFATE 75 MG TAB PO SCH (11:38)
[2025-07-18] MEDS: ATORVASTATIN 20 MG TAB PO SCH (11:38)
--- NOTE | 2025-07-18 12:10 | DVHPN2 ---
Reviewed: Care Plan, H&P, Labs, Medications, Previous Orders, Radiology Changes from previous H/P or p: No Changes Objective Vitals Vital Signs Date Time Temp Pulse Resp B/P (MAP) Pulse Ox O2 Delivery O2 Flow Rate FiO2 07/18/25 08:50 98.0 82 18 141/89 (106) 94 98.0 07/17/25 22:58 Room Air* 0 21 Intake/Output Intake and Output 07/18/25 07:00 Intake Total 200 ml Balance 200 ml Intake Oral 200 ml Medications Current Medications Medications Dose Ordered Sig/Jacqueline Route Start Time Stop Time Status Last Admin Dose Admin Ondansetron HCl 4 mg Q4HP PRN IV 07/17/25 19:30 Acetaminophen 650 mg Q6HP PRN PO 07/17/25 19:30 Lorazepam 1 mg ONCE PRN IV 07/17/25 23:30 Temazepam 15 mg HS PRN PO 07/17/25 23:30 Aspirin 81 mg DAILY PO 07/19/25 10:00 Clopidogrel Bisulfate 75 mg DAILY PO 07/19/25 10:00 08/08/25 23:00 Atorvastatin Calcium 20 mg HS PO 07/18/25 22:00 Laboratory Results Laboratory Tests 07/17/25 09:50 07/17/25 19:31 Chemistry Test 07/17/25 19:31 Calcium Level 9.8 mg/dL (8.7-10.4) Lipid panel Test 07/18/25 06:24 Cholesterol Level 153 mg/dL (< 200) HDL Cholesterol 34 mg/dL (40-59) L Triglycerides Level 93 mg/dL (< 150) HgA1c, TSH Test 07/17/25 19:31 Thyroid Stimulating Hormone (TSH) 1.89 uIU/mL (0.55-4.78) Urinalysis Test 07/17/25 10:00 Urine Color Light-yellow (Yellow) Urine Clarity Clear (Clear) Urine pH 5.5 (5.0-9.0) Urine Specific [place] 1.019 (1.001-1.035) Urine Protein Trace (Negative) H Urine Ketones Negative (Negative) Urine Blood Negative /uL (Negative) Urine Nitrite Negative (Negative) Urine Bilirubin Negative (Negative) Urine Urobilinogen Normal mg/dL (Negative) Urine Leukocyte Esterase Negative /uL (Negative) Urine RBC None seen /hpf (0 - 3) Urine Microscopic WBC 1 /HPF (0-3) Urine Squamous Epithelial Cells None seen /hpf (<5) Urine Bacteria None seen /hpf (None Seen) Urine Glucose 4+ mg/dL (Normal) H Labs and/or images reviewed: Labs reviewed by me, Image(s) reviewed by me Assessment/Plan Assessment/Plan Acute stroke Acute ischemic infarct involving left caudate nucleus by MRI brain neurology consult by Dr. Jarquin appreciated aspirin Plavix Lipitor Acute metabolic encephalopathy Partial complex seizures Dementia History of strokes Moderate malnutrition Time spent 70 minutes Advanced care planning time 20 minutes Plan discussed with: Patient Date of Service: Jul 18, 2025 Billing Provider: CY BARTON MD Common Visit Codes: [id number] CARE 30-74 MIN CY BARTON MD Jul 18, 2025 12:10
--- NOTE | 2025-07-18 12:42 | DVH ---
Carotid Duplex Date: 07/18/2025 11:04 AM Clinical History: cva Comparison: MRI BRAIN HEAD WO CONTRAST on DOS: 07/18/25, CT HEAD WITHOUT CONTRAST on DOS: 07/17/25 Technique: Duplex Doppler evaluation of the extracranial carotid and vertebral arteries including color Doppler and spectral/pulsed waveform analysis was performed. Findings: Antegrade vertebral artery flow bilaterally Velocities within normal limits IMPRESSION: No hemodynamically significant stenosis noted in the right carotid system. No hemodynamically significant stenosis noted in the left carotid system. Reference: Radiology 2003; 229:[id number]
[2025-07-18] MEDS: TEMAZEPAM 15 MG CAP PO PRN (22:28)
[2025-07-19] VITALS (7 sets, daily range): BP systolic 121–147; BP diastolic 81–101; PULSE 79–90; RESP 16–19; TEMP 98–98.9; O2SAT 94–96
--- NOTE | 2025-07-19 00:03 | DVHEEG2 ---
Neurology EEG Procedural Note Procedural Note EXAM DATE: 07/18/2025 REFERRING DOCTOR: Dr. Ford TECHNIQUE: Eighteen channels of EEG, 2 channels of EOG, and 1 channel of EKG were recorded using the [employer] 10/20 system. CLINICAL DATA: The patient was referred for an EEG evaluation for the evidence of seizure disorder. MEDICATIONS: See the chart BACKGROUND ACTIVITY: While the patient was awake, the background activity consisted of well regulated 8-9 Hz rhythmic waveforms, symmetrically distributed over both posterior quadrants and was reactive to eye opening. ACTIVATION: Hyperventilation: Not done Photic Stimulation: No photic convulsive response Sleep: Noticed IMPRESSION: This is a normal EEG. No focal, lateralized, or epileptiform features are noted. If clinically indicated to rule out a seizure disorder, recommend repeat EEG with sleep deprivation. The EKG channel showed a regular heart rate of 78 per minute [place] [address]. DESTINY FORD MD Jul 19, 2025 00:03
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
[2025-07-19] MEDS ORDERED: DEXTROSE (50%) 50ML SYRG IV PRN (12:00)
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
[2025-07-19] MEDS: ACCU-CHEK COMFORT CURVE STRIP VI SCH (17:07)
[2025-07-19] MEDS: InsuLIN REG 1unit/0.01ml Soln (100units/ml) SC SCH ×2 (17:22→21:46)
--- NOTE | 2025-07-19 20:52 | DVHPN2 ---
Progress Note - Dictate Date Seen: Jul 19, 2025 Medical Necessity Reason Pt with a Central, PICC or Fol: No Subjective Mr. Rivera is a 69 years old right-handed gentleman with a history of hypertension, diabetes, prostate cancer, the patient was brought to the [facility] on 07/17/2025 with a chief complaint of progressive memory loss, confusion. I have seen and examined the patient, I have talked to his nurse, . He is doing fine, alert, oriented to person place only, he recognize me, good social skills, no new complaints UDS, 07/17/2025: Negative Urinalysis, 07/17/2025: Unremarkable CBC, 07/17/2025: Okay BUN/CR, 07/17/2025: 11/1.56 GFR, 07/17/2025: 47 HGB A1c, 07/17/2025: 13.2 TG/HDL/LDL/HDL, 07/18/2025: 93/153/100/34 Vitamin B12, 07/17/25: 361 Folic acid, 07/17/2025: 4.62 TSH, 07/18/2025: 1.89 FT4, 07/17/25: 1.12 EEG, 07/18/2025: Normal Carotid Doppler, 07/18/2025: No hemodynamically significant stenosis noted in the right carotid system. No hemodynamically significant stenosis noted in the left carotid system. Chest x-ray, 07/17/2025: No acute cardiopulmonary disease. CT head, 07/17/2025: No acute intracranial abnormality (I saw evidence suggestive of chronic lacunar strokes in the left basal ganglia region) MRI head, 07/18/2025: Acute infarct in the tail of the left caudate nucleus. vital signs Vital Sign Date Time Temp Pulse Resp B/P (MAP) Pulse Ox O2 Delivery O2 Flow Rate FiO2 07/19/25 17:00 98.9 87 17 147/101 (116) 94 98.9 07/19/25 08:00 Room Air* 0 21 Total Intake and Output 07/18/25 07/18/25 07/19/25 15:00 23:00 07:00 Intake Total 558 ml 300 ml Balance 558 ml 300 ml medications Current Medications Medications Dose Ordered Sig/Jacqueline Route Start Time Stop Time Status Last Admin Dose Admin Ondansetron HCl 4 mg Q4HP PRN IV 07/17/25 19:30 Acetaminophen 650 mg Q6HP PRN PO 07/17/25 19:30 Lorazepam 1 mg ONCE PRN IV 07/17/25 23:30 Temazepam 15 mg HS PRN PO 07/17/25 23:30 07/18/25 22:28 15 MG Aspirin 81 mg DAILY PO 07/19/25 10:00 07/19/25 10:14 81 MG Clopidogrel Bisulfate 75 mg DAILY PO 07/19/25 10:00 08/08/25 23:00 07/19/25 10:15 75 MG Atorvastatin Calcium 20 mg HS PO 07/19/25 22:00 Diagnostic Test (Pha) 1 strip ACHS 07/19/25 17:00 07/19/25 17:07 1 STRIP Insulin Human Regular AC SC 07/19/25 17:00 07/19/25 17:22 12 UNITS Insulin Human Regular HS SC 07/19/25 22:00 Dextrose 50 ml UD PRN IV 07/19/25 12:00 objective General: the patient is well developed and nourished. No acute distress. MENTAL STATUS: Subjective SPEECH, LANGUAGE, HIGHER CORTICAL FUNCTION: no aphasia or dysathria. CRANIAL NERVES: Pupils are equal, round and reactive. EOMs full and conjugate. No nystagmus. Facial sensation intact in all three divisions bilaterally. Mandibular strength intact. Facial muscles symmetrical and strength intact. : Tongue midline. No fasciculations or atrophy. SENSATION: Sensation to touch and pinprick is normal. MOTOR: Normal tone in the upper and lower extremity. Normal muscle bulk. No fasciculations. No abnormal movements or posturing. Muscle strength of the major groups in the extremities is 5/5. REFLEXES: Deep tendon reflexes normal and symmetrical. No pathological reflexes. CEREBELLAR/COORDINATION: Finger to nose is normal bilaterally. GAIT/STATION: deferred. laboratory and microbiology Laboratory Tests 07/17/25 19:31 07/17/25 09:50 Test 07/17/25 19:31 Range/Units Serum Glucose 325 H 74-106 mg/dL Problem List Acute cognitive dysfunction Metabolic encephalopathy Partial complex seizure Other pathology/structural lesion Dementia/Alzheimer disease, less likely Possible chronic stroke per CT brain Assessment/Plan Monitoring Supportive treatment Telemetry Echocardiogram Aspirin 81 mg daily Lipitor 20 mg daily Clopidogrel 75 mg daily for 21 days Restoril 50 mg as needed at bedtime for insomnia Up to chair Physical therapy More recommendation per clinical course Progress: Poor This medical document was created using an electronic medical record system with [employer] dictation system. Although this document has been carefully reviewed, there may still be some phonetic and typographical errors. These areas are purely typographical due to imperfections of the software programs, and do not reflect any compromise in the patient's medical care. Prognosis poor Plan discussed with: Patient, Other Total Time (mins): 35 DESTINY FORD MD Jul 19, 2025 20:52
[2025-07-19] MEDS: ATORVASTATIN 20 MG TAB PO SCH (21:44)
[2025-07-20] MEDS: ACETAMINOPHEN 325 MG TAB PO PRN (01:02)
[2025-07-20 05:00] VITALS: BP_SYST 129; BP_SYST 137; BP_DIAS 100; BP_DIAS 96; PULSE 67; RESP 17; TEMP 97.7; O2SAT 95
[2025-07-20 08:40] VITALS: BP 136/99; PULSE 89; RESP 17; TEMP 98; O2SAT 95
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
[2025-07-20 13:00] VITALS: BP 147/93; PULSE 88; RESP 17; TEMP 97.6; O2SAT 97
[2025-07-20 15:05] LABS: COVID19 ANTIGEN SOFIA FIA NEGATIVE (NEGATIVE)
[2025-07-20 16:41] VITALS: BP 138/98; PULSE 85; RESP 16; TEMP 98; O2SAT 96
[2025-07-20 20:00] VITALS: PULSE 80; RESP 19; O2SAT 95
[2025-07-20 21:00] VITALS: BP 120/89; PULSE 80; RESP 19; TEMP 96.7; O2SAT 95
[2025-07-20] MEDS ORDERED: INSULIN LANTUS (GLARGINE) 1 /0.01ml (100units/ml) SC ONE (22:30)
[2025-07-21] VITALS (7 sets, daily range): BP systolic 122–143; BP diastolic 93–108; PULSE 69–104; RESP 16–19; TEMP 36.6; O2SAT 94–98
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
[2025-07-21] MEDS ORDERED: INSULIN LANTUS (GLARGINE) 1 /0.01ml (100units/ml) SC SCH (22:00)
--- NOTE | 2025-07-22 10:29 | DVHSR ---
APPROVED REPORT EXAM: Two-dimensional and M-mode echocardiogram with Doppler and color Doppler. Blood Pressure: 141/89 mmHg INDICATION CVA/TIA: RISK FACTORS Height: 5'8", Weight: 217 DIMENSIONS LVDd (3.8-5.7cm) LA (2D) 3.7 (1.9-4.0cm) Aortic Root (2.0-3.7cm) EF (%) 24.0 (55-70%) Rt. Atrium (1.9-4.0cm) Asc. Aorta cm Mitral Valve Mitral Mitral Stenosis E/A ratio 0.0 2D MVA cm2 Aortic Valve Aortic Valve Aortic Stenosis V1 0.67m/s AO Mean GR. 4mmHg V2 1.23m/s AO Peak GR. 6mmHg LVOT Diameter 2.0 (1.8-2.4cm) Doppler CHELSEA 1.71cm2 AI P 1/2 Time 429.31ms Other Information Quality : Technically Limited Rhythm : Technically limited study due to body habitus. Conclusion lvef 30 % diminshed RV function normal atria no severe valve abnormalities noted mild aortic regurg normal pericardium
== END 2025-07-21 16:00 | DRG 65 ==
LOC: ER 09:02 → OVERFLOW 19:55 → WEST WING 19:56
PROVIDERS: ADMIT Family Medicine; ATTEND Family Medicine
DX: I63.9 Cerebral infarction, unspecified (principal); E44.0 Moderate protein-calorie malnutrition; Z79.02 Long term (current) use of antithrombotics/antiplatelets; G40.209 Localization-related (focal) (partial) symptomatic epilepsy and epileptic syndromes with complex partial seizures, not intractable, without status epilepticus; E11.65 Type 2 diabetes mellitus with hyperglycemia; I12.9 Hypertensive chronic kidney disease with stage 1 through stage 4 chronic kidney disease, or unspecified chronic kidney disease; N18.9 Chronic kidney disease, unspecified; F03.90 Unspecified dementia, unspecified severity, without behavioral disturbance, psychotic disturbance, mood disturbance, and anxiety; Z68.33 Body mass index [BMI] 33.0-33.9, adult; Z20.822 Contact with and (suspected) exposure to COVID-19; E11.22 Type 2 diabetes mellitus with diabetic chronic kidney disease; Z91.199 Patient's noncompliance with other medical treatment and regimen due to unspecified reason; Z85.46 Personal history of malignant neoplasm of prostate; Z83.3 Family history of diabetes mellitus; Z82.49 Family history of ischemic heart disease and other diseases of the circulatory system; Z80.42 Family history of malignant neoplasm of prostate; Z90.49 Acquired absence of other specified parts of digestive tract; Z79.82 Long term (current) use of aspirin; Z79.4 Long term (current) use of insulin; Z79.899 Other long term (current) drug therapy
CPT/HCPCS: 36415; 70450; 70551; 71045; 80048; 80061; 80307; 81001; 82607; 82746; 82962; 83036; 84439; 84443; 84484; 85025; 86850; 86900; 86901; 87426; 93306; 93886; 95819; 97110; 97116; 97163; 97530; G0378; J1815